=== PATIENT | female | born 1985 | race African-American/Black ===

== ENCOUNTER 2017-12-20 13:33 | Emergency (ER) | payer SELFPAY ==
[~2017-12-20] VITALS: Ht 172.7 cm; Wt 143.0 kg
[2017-12-20] MEDS ORDERED: ACETAMINOPHEN 325MG TABLET PO ONE (16:00)
[2017-12-20 19:08] VITALS: BP 98/69
== END 2017-12-20 19:30 | disposition home or self-care (01) ==
LOC: ER 13:51
DX: J06.9 Acute upper respiratory infection, unspecified (principal)
CPT/HCPCS: 71046; 87804; 93005; 99285

== ENCOUNTER 2018-04-12 13:55 | Emergency (ER) | payer SELFPAY ==
[~2018-04-12] VITALS: Ht 162.6 cm; Wt 130.0 kg
[2018-04-12 15:05] LABS: BASOPHILS % 0.8 % (0.0-2.0); EOSINOPHILS % 1.3 % (0.0-5.0); HEMATOCRIT. 30.1 % (36.0-48.0); HEMOGLOBIN. 9.3 g/dL (12.0-16.0); LYMPHOCYTES % 40.1 % (20.0-50.0); MEAN PLATELET VOLUME 8.6 fl (7.4-10.4); MONOCYTES % 8.8 % (2.0-8.0); PLATELET 446 x1000/uL (130-400); RED BLOOD CELL COUNT 4.43 mill/uL (4.2-5.4); RED CELL DISTRIBUTION WIDTH 17.7 % (11.6-14.6)
[2018-04-12 15:06] LABS: CHLORIDE 107 mEq/L (98-107)
[2018-04-12 15:08] LABS: PARTIAL THROMBOPLASTIN TIME 26.7 sec (23.4-31.0); PROTHROMBIN TIME 10.7 sec (9.4-11.6)
[2018-04-12] MEDS ORDERED: METOCLOPRAMIDE HCL 10MG/2ML VIAL IV ONE (15:15)
[2018-04-12] MEDS ORDERED: MORPHINE SULFATE 4 MG/ML CPJ (NOT FOR IM USE) IV ONE (15:15)
[2018-04-12 15:47] LABS: HCG SCREEN NEGATIVE
[2018-04-12 15:50] LABS: PLATELET ESTIMATE SLIGHTLY INCREASED
[2018-04-12 19:45] VITALS: BP 135/82
== END 2018-04-12 20:56 | disposition home or self-care (01) ==
LOC: ER 14:51
DX: R07.89 Other chest pain (principal); R51 Headache
CPT/HCPCS: 36415; 71045; 80053; 81025; 83690; 84484; 84703; 85025; 85610; 85730; 93005; 96374; 96375; 99285; J2270; J2765; J7030